=== PATIENT | female | born 1955 | race Caucasian/White ===

== ENCOUNTER 2019-06-18 20:23 | Observation (INO) ==
[2019-06-18] MEDS ORDERED: ONDANSETRON 4 MG/2 ML VIAL IV ONE ×2 (20:26→22:57)
[2019-06-18] MEDS ORDERED: HYDROmorphone 0.5 MG/0.5 ML SYRINGE IV PRN (20:37)
--- NOTE | 2019-06-18 20:59 | Emergency Department Note ---
Fall HPI - General Chief Complaint: Fall Stated Complaint: fell from ladder Time Seen by Provider: 06/18/19 20:29 Source: patient, EMS Mode of arrival: EMS - History of Present Illness HPI Narrative: Reason for visit: Patient fell from a ladder approximately 4 feet just prior to arriving to the emergency department. Reports right arm pain and right knee pain. Patient has obvious deformity of her right arm just above her wrist. Reports right knee pain and a history of a knee replacement in this right knee. Patient denies cervical tenderness denies hitting her head. Denies other injury. Denies recent fever cough or chills. Denies chest pain or palpations or shortness of breath. Denies pain in her right extremities. Has no palpable pain of her ribs or back. - Related Data Home Medications Medication Instructions Recorded Confirmed Levothyroxine [Synthroid] 50 mcg PO DAILY 06/18/19 06/18/19 Previous Rx's Medication Instructions Recorded HYDROcodone/APAP 5/325MG [[place]into 1 tab PO Q4HP PRN 5 Days #20 tablet 06/18/19 5-325Mg] Allergies Allergy/AdvReac Type Severity Reaction Status Date / Time No Known Drug Allergies Allergy Unverified 06/18/19 20:24 Review of Systems Constitutional: Denies: fever, chills ENT ED: Denies: throat pain, epistaxis Cardiovascular: Denies: chest pain, palpitations Respiratory: Denies: shortness of breath, cough, wheezes Gastrointestinal: Denies: abdominal pain, nausea, vomiting Musculoskeletal: Reports: as per HPI, joint swelling, joint pain, other (Also reports right hip tenderness upon palpation. Appears to be intact and no obvious external or internal rotation.). Denies: back pain Integumentary: Denies: rash, lesions Neurological: Reports: numbness (Reports some numbness in the fingers of her right hand.). Denies: headache, confusion Endocrine: Denies: fatigue Hematological/Lymphatic: Denies: easy bleeding, easy bruising, lymphadenopathy Fall PMH - Past Medical History Attestation: Yes: The following information was validated with the patient. - Social History smoking status: Never smoker Physical Exam Limitations: no limitations General appearance: alert Head: atraumatic, normocephalic, normal inspection Eye: Present: normal appearance, PERRL, EOMI. Absent: scleral icterus, conjunctival injection ENT: Present: normal oropharynx, mucous membranes moist Neck: Present: normal inspection, full ROM, trachea midline. Absent: tenderness, lymphadenopathy, thyromegaly Chest: Present: normal inspection, symmetric chest wall rise. Absent: tenderness Respiratory: Present: normal lung sounds bilaterally Cardiovascular: Present: regular rate, normal rhythm Abdominal: Absent: tenderness, guarding Extremities: Present: joint swelling (Right knee and right wrist.). Absent: full ROM, pedal edema, pretibial edema Forearm/Wrist: Present: tenderness, swelling, deformity. Absent: full ROM (Right wrist.) Hand: Absent: deformity Hip/Pelvis: Present: normal inspection, tenderness, pelvis stable. Absent: deformity, external rotation, internal rotation, shortening Upper leg: Present: normal inspection. Absent: tenderness Knee: Present: tenderness (Right knee.), swelling (Slight swelling some bruising. No obvious deformity.). Absent: full ROM Lower leg: Present: normal inspection. Absent: tenderness Ankle: Absent: tenderness Back: Present: normal inspection, full ROM. Absent: tenderness, L-S tenderness Neurological: Present: alert, oriented X3, CN II-XII intact Psychiatric: Present: normal affect Skin: Present: warm, dry, intact Course Course Narrative: Patient is alert and awake. Denies cervical tenderness denies head injury. Will not place patient in c-collar at this time. We will have a right wrist, right knee performed due to direct complaint and testament. We will also have a right hip x-ray due to patient's stated tenderness pain upon movement. Do not see an obvious break or deformity of the right knee or the hip. Obvious radial fracture with deformity on the x-ray. I have contacted Dr. Brandon who is the on-call orthopedist. He is agreed to look at this x-ray and call me back. Dr. Brandon called me back. He informed me that he is sending his PA to our emergency department to come and reduce the patient's right wrist. We will also send a referral to [facility] for the patient's right knee pain. Vital Signs Temperature 98 F 06/18/19 20:25 Pulse Rate 82 06/18/19 20:25 Respiratory Rate 16 06/18/19 20:25 Blood Pressure 111/69 06/18/19 20:25 Pulse Oximetry (%) 95 06/18/19 20:25 Temperature 98 F 05/10/20 20:25 Pulse Rate 88 06/18/19 21:16 Respiratory Rate 16 06/18/19 20:25 Blood Pressure 135/78 06/18/19 21:16 Pulse Oximetry (%) 97 06/18/19 21:16 Fall - Differential Diagnosis Likely: dislocation of shoulder region, fracture of wrist, concussion without loss of consciousness Disposition Pt seen by [facility]ER/PA only: No Clinical Impression: Fracture of wrist Qualifiers: Encounter type: initial encounter Fracture type: closed Laterality: right Qualified Code(s): S62.101A - Fracture of unspecified carpal bone, right wrist, initial encounter for closed fracture Fall Qualifiers: Encounter type: initial encounter Qualified Code(s): W19.XXXA - Unspecified fall, initial encounter Knee buckling Qualifiers: Laterality: right Qualified Code(s): M25.361 - Other instability, right knee Disposition: Home, Self-Care Condition: Fair Instructions: Wrist Fracture in Adults (ED) Additional Instructions: I have sent a prescription for hydrocodone to your pharmacy that you can picket labor union. I have also referred you to [facility] to follow-up with your knee. You could call their office with the supplied phone number and these instructions. This should be on the front page. Wear knee immobilizer until you follow-up with [facility]. Prescriptions: HYDROcodone/APAP 5/325MG [Minto 5-325Mg] 1 tab PO Q4HP PRN 5 Days #20 tablet PRN Reason: Pain Transmission Status: Received by [facility] # [id number] Referrals: Donna Chandler ARNP [Primary Care Provider] - Charly Brandon MD [Physician] -
[2019-06-18] MEDS ORDERED: LIDOCAINE 1% 20 ML VIAL SQ ONE (22:30)
[2019-06-18] MEDS ORDERED: PROMETHAZINE 25 MG/ML VIAL IM PRN (23:52)
--- NOTE | 2019-06-19 00:31 | History and Physical Report ---
DATE OF ADMISSION: 06/18/2019 CHIEF COMPLAINT: Right wrist pain with deformity. HISTORY OF PRESENT ILLNESS: The patient was up on a ladder earlier today when she fell off the ladder and onto her right wrist. She had immediate pain and deformity. She was then brought to the ED. X-rays were taken which showed a displaced distal radius fracture. Orthopedics was then consulted. The patient denied head injury or loss of consciousness. She does report knee pain. She has previously had a total knee arthroplasty on her right knee. PAST MEDICAL HISTORY: Hypothyroidism. PAST SURGICAL HISTORY: Right total knee arthroplasty. ALLERGIES: The patient reports no known drug allergies. HOME MEDICATIONS: She reports taking Synthroid 50 mcg p.o. daily. SOCIAL HISTORY: She does not smoke. PHYSICAL EXAMINATION: GENERAL: She is alert and oriented x3. She has appropriate mood and affect. EXTREMITIES: Right upper extremity showed gross deformity upon inspection at the wrist. She had moderate swelling, mild ecchymosis. She was able to actively move her thumb slightly; however, no active or passive range of motion noted in the other 4 digits. She did have good capillary refill; however, she did state sensation was not intact to her digits 2 through 4. She could feel her thumb, however. She had no pain to palpation at the elbow or shoulder. Left upper extremity showed full active and passive range of motion of the wrist and elbow. Good capillary refill. Palpable radial pulse. The patient did have tenderness on the medial and lateral sides of her knee. She had pain with valgus stress testing. Pain with active and passive range of motion of the knee. No pain with hip internal rotation passively. X-rays taken did show a displaced distal radius fracture consistent with Colles fracture. IMPRESSION: Displaced distal radius fracture of the right wrist. PLAN: After informed verbal consent, the patient chose to undergo a right wrist closed reduction. I did administer a hematoma block with 10 mL of lidocaine. After the patient had appropriate pain relief, reduction maneuver was then performed and verified with a mini fluoroscopy. The patient's wrist was then splinted with a sugar tong splint. Updated fluoroscopy images were then obtained confirming we maintained appropriate reduction. The patient will follow up with [facility] tomorrow for further treatment options including conservative versus operative management and also casting. She will also be sent home with a prescription for hydrocodone. She may take OTC NSAIDs and Tylenol as needed. She will also keep the arm elevated. She will call [facility] with any questions or concerns. JASMINE:khoi Job ID: [id number] Doc ID: [id number] Phong Alexander PA-C
--- NOTE | 2019-06-19 00:32 | History and Physical Report ---
DATE OF ADMISSION: 06/18/2019 ADDENDUM Knee x-rays, 3 view of the knee does show a nondisplaced periprosthetic tibial plateau fracture. PLAN: She was placed into a knee ranger locked in extension on the right knee. She is to remain nonweightbearing on the right lower extremity. Assuming the fracture does not displace, we will attempt nonsurgical measures at this time. JASMINE:khoi Job ID: [id number] Doc ID: [id number] Phong Alexander PA-C
[2019-06-19] MEDS: LEVOTHYROXINE 50 MCG TABLET PO SCH (07:15)
--- NOTE | 2019-06-19 07:37 | Internal Med History&Physical ---
Medical - H&P: HPI Patient information: Note initiated : 06/19/19 at 7:36 am Service Date, if different from initiated Date: [] Patient: Yue Montano 64 y/o F admitted on 06/19/19 for fell from ladder. Chief Complaint: [] Chief complaint: Fall off ladder History of present illness: Ms. Montano is a 64 year old F presents to the ER last evening after she was trying to insert a sign post and fell off a ladder approximately 4 feet. Patient was on the ground for at least 20 minutes when she called her friend and subsequently EMS arrived , she denies losing consciousness or sustaining head injuries. She landed on her right side injuring her right hand and leg. Initial work-up was consistent with right wrist fracture/right proximal tibia fracture. Orthopedics was consulted and patient underwent reduction and was advised discharge with nonweightbearing on right side along with outpatient follow-up at the clinic. However due to concerns of patient being able to take care of self in light of her living alone and unable to bear weight on right side hospital service was consulted for admission until a safe discharge plan can be arranged along with continued pain management. At the time evaluation patient is alert and oriented. She was able to answer most of the questions and provide history as above. She denied lightheadedness dizziness endorses to fall getting off balance. She denies prior similar episodes. Review of systems A 10 point review system was performed and is negative except for ones discussed above Medical - H&P: PMH Medical history: Hypothyroidism Degenerative joint disease Pertinent family history: Nonrelevant Social history: No smoking or alcoholism Medical - H&P: Meds Home Medications Medication Instructions Recorded Confirmed Type HYDROcodone/APAP 5/325MG [[place] 1 tab PO Q4HP PRN 5 Days #20 tab 06/18/19 Rx 5-325Mg] Levothyroxine [Synthroid] 50 mcg PO DAILY 06/18/19 06/19/19 History Allergies Allergy/AdvReac Type Severity Reaction Status Date / Time No Known Drug Allergies Allergy Unverified 06/18/19 20:24 Medical - H&P: Exam - Constitutional Vitals: Temp Pulse Resp BP Pulse Ox 98.0 F 81 14 112/72 96 06/19/19 04:00 06/19/19 04:00 06/19/19 04:00 06/19/19 04:00 06/19/19 04:00 General appearance: no acute distress Exam: Alert oriented head normocephalic Oral cavity dry No ear nose discharge Neck lymphadenopathy Nonlabored breathing Abdomen nondistended Left lower extremity in knee [place] locked in extension position No cyanosis clubbing or lymphedema Skin no suspicious lesion Psych alert cooperative Neuro nonfocal Medical - H&P: A/P (1) Fracture of wrist Current visit: Yes Status: Acute * Right wrist fracture status post close reduction by orthopedics. Orthopedic recommends follow-up outpatient clinic * Right tibia fracture on knee [place] locked in extension position/non weightbearing as per orthopedics. PT eval/directed treatments * Pain management on as needed opioids * Hypothyroidism continue home dose thyroxine * Prophylaxis heparin Plan * Observation admit * Pain management * PT OT/nutrition support * Case management coordinate safe discharge plan * Outpatient follow-up with orthopedics in 14 days Medical - H&P: Qual - VTE Deep Vein Thrombosis/Pulmonary Embolism Present on Admission: No
[2019-06-19] MEDS ORDERED: ONDANSETRON 4 MG/2 ML VIAL IV PRN (08:48)
--- NOTE | 2019-06-19 09:41 | XRay Report ---
CLINICAL INFORMATION: fall, knee pain COMPARISON: None. FINDINGS: Comminuted, nondisplaced hairline fracture of the proximal tibial epiphysis, metaphysis and metadiaphysis appreciated. Moderate diffuse osteoporosis noted. Total knee prostheses is anatomically aligned - there is mild resorption about the lateral aspect of the tibial anchoring component which could indicate loosening. Moderate size suprapatellar effusion noted. IMPRESSION: Comminuted, yet nondisplaced hairline fracture of the proximal tibia. Diffuse osteoporosis Moderate suprapatellar effusion Possible loosening of the tibial anchoring component Interpreted and Authenticated by: Bill Mendiola 06/19/19
--- NOTE | 2019-06-19 09:43 | XRay Report ---
CLINICAL INFORMATION: fall, deformity COMPARISON: None. FINDINGS: A severely comminuted amount predominantly converse, fracture through the distal radial metaphysis appreciated. The distal radial fragment is displaced entire shaft width dorsally and half shaft width ulnar direction. Distal fragment is also angulated approximately 45 degrees in the dorsal direction. There is also a severely comminuted transverse fracture of the ulnar styloid process base with fragment displacement entire shaft width dorsally and ulnarly dorsally and ulnarly. IMPRESSION: Severely comminuted markedly displaced displaced Colles' fracture distal radius. Severely comminuted and displaced fracture of the ulnar styloid process base Interpreted and Authenticated by: Bill Mendiola 06/19/19
--- NOTE | 2019-06-19 09:44 | XRay Report ---
CLINICAL INFORMATION: Trauma COMPARISON: None. FINDINGS: Sacroiliac and hip joints are normal in width and alignment without arthritic change. There is no fracture or osseous abnormality. Soft tissues are unremarkable. IMPRESSION: Normal exam. Interpreted and Authenticated by: Bill Mendiola 06/19/19
[2019-06-19] MEDS ORDERED: ACETAMINOPHEN 1,000 MG/100 ML BOTTLE IV ONE (10:25)
[2019-06-19] MEDS: traMADol 50 MG TABLET PO PRN ×2 (11:06→17:59)
[2019-06-19] MEDS: oxyCODONE HCL 5 MG TABLET PO PRN (19:34)
[2019-06-20] MEDS: oxyCODONE HCL 5 MG TABLET PO PRN ×3 (03:51→19:21)
[2019-06-20] MEDS: ACETAMINOPHEN 325 MG TABLET PO PRN ×3 (03:52→19:21)
[2019-06-20] MEDS: LEVOTHYROXINE 50 MCG TABLET PO SCH (07:12)
--- NOTE | 2019-06-20 09:22 | Internal Med Progress Note ---
Medical - PN: Subj Patient information: Note initiated : 06/20/19 at 9:11 am Service Date, if different from initiated Date: [] Patient: Yue Montano a 64 y/o F admitted on 06/19/19 for fell from ladder. Chief Complaint: [] Interval history: Ms. Montano is a 64 year old F presents to the ER last evening after she was trying to insert a sign post and fell off a ladder approximately 4 feet. Patient was on the ground for at least 20 minutes when she called her friend and subsequently EMS arrived , she denies losing consciousness or sustaining head injuries. She landed on her right side injuring her right hand and leg. Initial work-up was consistent with right wrist fracture/right proximal tibia fracture. Orthopedics was consulted and patient underwent reduction and was advised discharge with nonweightbearing on right side along with outpatient follow-up at the clinic. However due to concerns of patient being able to take care of self in light of her living alone and unable to bear weight on right side hospital service was consulted for admission until a safe discharge plan can be arranged along with continued pain management. At the time evaluation patient is alert and oriented. She was able to answer most of the questions and provide history as above. She denied lightheadedness dizziness endorses to fall getting off balance. She denies prior similar episodes. 06/19-patient clinically improving. No overnight fever chills. Pain well controlled on oxycodone codon/tramadol/Tylenol. Ongoing physical therapy but continues to feel dizzy and weak. Patient's family members will be joining her to provide help after discharge on Wednesday. Will likely discharge in 24 hours. - Constitutional Vitals: Vital Signs Temp Pulse Resp BP Pulse Ox 98.1 F 79 16 109/66 95 06/20/19 07:06 06/20/19 07:10 06/20/19 07:10 06/20/19 07:06 06/20/19 07:10 Period Temp Pulse Resp BP Sys/Zimmer Pulse Ox Last 24 Hr 97.8 F-99.0 F 78-85 16-20 93-120/59-77 94-97 Intake and Output 06/19/19 06/20/19 06/20/19 21:59 05:59 13:59 Intake Total 850 550 Balance 850 550 Weight 140 lb 12.8 oz Intake & Output: Intake & Output 06/19/19 06/20/19 06/20/19 21:59 05:59 13:59 Intake Total 850 550 Balance 850 550 Weight 140 lb 12.8 oz Intake: Oral 850 550 Other: Meal Dinner Percent of Meal Consumed 100% Feeding Ability Independent Urine Color Dark Yellow Urine Odor Normal # Voids 2 1 General appearance: no acute distress Exam: Right wrist in cast Head normocephalic No anxiety Nonlabored breathing Medical - PN: Obj Da - Labs CBC & Chem 7: 06/20/19 08:06 06/20/19 08:06 Meds: Medications Acetaminophen (Tylenol) 325 mg PO Q4-6HP PRN; Protocol PRN Reason: Per Pain Protocol/Fever > 101 Last Admin: 06/20/19 03:52 Dose: 325 mg Documented by: Levothyroxine Sodium (Synthroid) 50 mcg PO QAMAC MYNOR Last Admin: 06/20/19 07:12 Dose: 50 mcg Documented by: Morphine Sulfate (Morphine) 2 mg IV Q1HP PRN; Protocol PRN Reason: Chest Pain Last Admin: 06/19/19 07:15 Dose: 2 mg Documented by: Ondansetron HCl (Zofran) 4 mg IV Q4HP PRN PRN Reason: Nausea And Vomiting Last Admin: 06/20/19 07:34 Dose: 4 mg Documented by: Oxycodone HCl (Roxicodone) 2.5 mg PO Q4-6HP PRN; Protocol PRN Reason: Per Pain Protocol Last Admin: 06/20/19 03:51 Dose: 2.5 mg Documented by: Promethazine HCl (Phenergan) 12.5 mg IM Q6HP PRN PRN Reason: Nausea And Vomiting Tramadol HCl (Ultram) 50 mg PO Q4-6HP PRN PRN Reason: Pain Last Admin: 06/19/19 17:59 Dose: 50 mg Documented by: Medical - PN: A/P - Time Spent With Patient Total time spent is greater than 50% in coordination of care (as documented) at patient's floor/unit and/or counseling patient: 15 - 24 minutes (1) Fracture of wrist Status: Acute Assessment and plan: * Right wrist fracture status post close reduction by orthopedics. Orthopedic recommends follow-up outpatient clinic in 1 week * Right tibia fracture on knee [place] locked in extension positio n/nonweightbearing as per orthopedics. PT eval/directed treatments. We will follow-up with orthopedics * Pain management on as opioid/tramadol/Tylenol * Hypothyroidism continue home dose thyroxine * Prophylaxis heparin Plan * Continue multimodal pain management * PT OT/nutrition support * Likely discharge in 24 hours Current Visit: Yes Medical - PN: Qual - VTE Deep Vein Thrombosis/Pulmonary Embolism Present on Admission: No
[2019-06-20 09:27] LABS: Hematocrit 33.6 % (34.1-44.9); Hemoglobin 11.4 g/dL (11.2-15.7); Mean Cell Volume 95.7 fL (80.0-100.0); Mean Corpuscular HGB Conc 33.9 g/dL (31.0-36.0); Mean Platelet Volume 9.9 fL (7.4-10.4); Platelet Count 205 K/mcL (140-440); RBC 3.51 M/mcL (3.59-5.38); Red Cell Distribution Width 14.4 % (11.5-14.5); WBC 8.3 K/mcL (4.50-11.00)
[2019-06-20 09:44] LABS: ALT/SGPT 14 U/l (0-40); AST/SGOT 17 U/l (0-37); Albumin 4.1 gm/dL (3.2-5.2); Albumin/Globulin Ratio 1.6 (1.0-2.3); Alkaline Phosphatase 49 U/L (39-117); Bilirubin,Direct < 0.2 mg/dL (0.0-0.3); Bilirubin,Total 0.5 mg/dL (0.0-1.0); Blood Urea Nitrogen 10 mg/dl (8-23); Calcium 9.2 mg/dl (8.6-10.4); Carbon Dioxide 27 mmol/L (22-30); Chloride 99 mmol/L (96-108); Globulin 2.5 gm/dL (2.2-3.7); Glomerular Filtration Rate 92; Glucose 137 mg/dL (70-105); Lactate Dehydrogenase 190 U/L (94-250); Phosphorous 2.7 mg/dL (2.7-4.5); Triglycerides 95 mg/dl (<150)
[2019-06-20 09:59] LABS: Eosinophils % (Manual) 2 % (0-7); Hypochromasia 1+ (NONE SEEN); Lymphocytes % 12 % (15-49); Monocytes % (Manual) 11 % (1-12); Platelet Estimate NORMAL (NORMAL); RBC Morphology ABNORM (NORMAL); Segmented Neutrophils % 75 % (38-78)
[2019-06-20] MEDS ORDERED: SCOPOLAMINE 1 PATCH PATCH TOPICAL PRN (12:39)
[2019-06-20] MEDS ORDERED: IPRATROPIUM/ALBUTEROL 3 ML AMPUL.NEB NEB PRN ×2 (12:39→15:44)
[2019-06-20] MEDS ORDERED: PROPOFOL 200 MG/20 ML VIAL IV ONE (15:03)
[2019-06-20] MEDS ORDERED: DEXAMETHASONE 10 MG/ML VIAL IV ONE (15:03)
[2019-06-20] MEDS ORDERED: ONDANSETRON 4 MG/2 ML VIAL IV ONE (15:03)
[2019-06-20] MEDS ORDERED: fentaNYL 100 MCG/2 ML VIAL IV ONE (15:03)
[2019-06-20] MEDS ORDERED: LIDOCAINE HCL/PF 100 MG/5 ML SYRINGE IV ONE (15:03)
[2019-06-20] MEDS ORDERED: KETAMINE 100 MG/ML ML IV ONE (15:03)
[2019-06-20 15:14] LABS: Appearance,Urine CLEAR; Bilirubin,Urine NEG (NEG); Color,Urine STRAW; Culture Indicated,Urine NO; Glucose,Urine (UA) NEGATIVE (NEG); Ketones,Urine 5/TR mg/dL (NEG); Leukocyte Esterase,Urine NEG /uL (NEG); Nitrate,Urine NEG (NEG); Protein,Urine NEG (NEG); Specific Gravity,Urine 1.008 (1.000-1.035); Urine Blood NEG mg/dL (<0.03); Urobilinogen,Urine NEG (NEG)
[2019-06-20] MEDS ORDERED: ceFAZolin 2 GM in DEXTROSE 5% IN WATER 50 ML IV SCH (15:15)
[2019-06-20] MEDS ORDERED: LACTATED RINGERS 250 ML IV PRN (15:44)
[2019-06-20] MEDS ORDERED: NALOXONE HCL 0.4 MG/ML VIAL IV PRN (15:44)
[2019-06-20] MEDS ORDERED: PROMETHAZINE 25 MG/ML VIAL IV PRN (15:44)
[2019-06-20] MEDS ORDERED: ACETAMINOPHEN 1,000 MG/100 ML BOTTLE IV ONE (15:44)
[2019-06-20] MEDS ORDERED: diphenhydrAMINE 50 MG/ML VIAL IV PRN (15:44)
[2019-06-20] MEDS ORDERED: MEPERIDINE 25 MG/ML SYRINGE IV PRN (15:44)
[2019-06-20] MEDS ORDERED: PROMETHAZINE 25 MG/ML VIAL IM PRN (15:44)
[2019-06-20] MEDS ORDERED: ONDANSETRON 4 MG/2 ML VIAL IV PRN (15:44)
[2019-06-20] MEDS ORDERED: LACTATED RINGERS 1,000 ML IV SCH (15:45)
--- NOTE | 2019-06-20 16:08 | Brief Operative Note ---
Date of procedure: 06/20/19 Pre-op diagnosis: Comminuted intra-articular Right closed distal radius Colle's fracture Post-op diagnosis: same Procedure: Open treatment of comminuted intra-articular closed Colles distal radius fracture with internal fixation Grafts/Implants: Yes (Hand innovations) Anesthesia: GLMA Findings: osteoporosis Complications: none Surgeon: Charly Brandon Booking Clerk: Phong Alexander Estimated blood loss (cc): 10 Specimens Removed/Pathology: none sent Condition: stable Disposition: PACU
--- NOTE | 2019-06-20 16:11 | Discharge Summary ---
Ortho Discharge Plan - General - Patient Instructions Diet: Regular Diet Activity: non weight bearing (Right wrist and right LE, OK to use a trough walker) Dressing Care: May shower in 2 days (a) Patient Education: Wrist Fracture in Adults (ED) Additional Instructions: I have sent a prescription for hydrocodone to your pharmacy that you can pickup driver. This has acetaminophen (Tylenol) in it, so do not supplement with any extra Tylenol. Ice and elevate wrist and leg, 20 minutes at a time, multiple times per day, to help with pain, and swelling. You have been referred to see the [facility] [employer] [facility], Call their office in the morning. Do not put any weight on your right knee, wear the knee brace until further instruction from the Orthopedic. - Follow Up Plan Follow Up Appointments: Charly Brandon MD [Physician] - Donna Chandler ARNP [Primary Care Provider] - Disposition: Home, Self-Care Prognosis: Fair Rehab Potential: Fair - Orders For Discharge Prescriptions: HYDROcodone/APAP 5/325MG [[place] 5-325Mg] 1 tab PO Q4HP PRN 5 Days #20 tab PRN Reason: Pain Transmission Status: Received by [facility] # [id number] Additional Discharge Orders: Physical Therapy at Discharge - General Location: None Selected Walker Location: None Selected
[2019-06-20] MEDS ORDERED: BUPIVACAINE W/EPI 0.5% 50 ML VIAL IJ ONE (16:19)
[2019-06-20] MEDS: fentaNYL 100 MCG/2 ML VIAL IV PRN ×4 (16:36→16:45)
[2019-06-20] MEDS: traMADol 50 MG TABLET PO PRN (17:16)
[2019-06-21] MEDS: ACETAMINOPHEN 325 MG TABLET PO PRN ×3 (05:18→14:53)
[2019-06-21] MEDS: oxyCODONE HCL 5 MG TABLET PO PRN ×3 (05:19→14:54)
[2019-06-21] MEDS: LEVOTHYROXINE 50 MCG TABLET PO SCH (07:34)
--- NOTE | 2019-06-21 08:25 | Operative Note ---
DATE OF OPERATION: 06/20/2019 PREOPERATIVE DIAGNOSIS: Comminuted intraarticular right distal radius fracture, Colles type. POSTOPERATIVE DIAGNOSIS: Comminuted intraarticular right distal radius fracture, Colles type. PROCEDURE PERFORMED: Open treatment and internal fixation of the right comminuted intraarticular closed distal radius fracture with three or more fragments using [employer] volar distal radius plate. SURGEON: Charly Brandon M.D. FLOATING DERRICK OPERATOR: Luciano Alexander PA-C. The PA's assistance was required for the safe and efficient completion of the entire case. This provider's expertise and technical skill were required throughout the case. The PA assisted with preoperative coordination, intraoperative retraction, wound closure, dressing and splint application, as well as postoperative documentation and care coordination. ANESTHESIA: General. DRAINS: None. SPECIMENS: None. COMPLICATIONS: None. BLOOD LOSS: 10 mL. POSTOPERATIVE CONDITION: Stable. INDICATIONS FOR SURGERY: This is a 64-year-old female who two days ago fell off of a ladder, injuring her right wrist and knee. X-rays showed a severely comminuted and displaced distal radius fracture. She also had a nondisplaced fracture of her proximal tibia with a total knee prosthesis just above it. She did have a closed reduction performed on the wrist with good reduction. However, due to her tibia fracture she wanted to proceed with fixation of the wrist to allow easier use of a trough walker. FINDINGS AT SURGERY: Significant osteoporosis. Post-fixation showed satisfactory mormon of radial inclination and height with mormon of volar tilt. Hardware was in good position. PROCEDURE IN DETAIL: The patient had been preoperatively. Informed consent had been obtained after discussion of risks and benefits of surgery. Risks including, but not limited to, bleeding; infection; injury to nerves, blood vessels, other surrounding structures; anesthetic risks; nonunion or malunion of the fracture; failure of hardware fixation; stiffness; pain; possibility of needing further surgery. She understood and wished to proceed. Correct operative site was marked in preoperative holding and patient was taken to the operating room. General anesthesia was induced. Right upper extremity was carefully prepped and draped in normal sterile fashion. Time out was performed verifying patient name, operative site, and plan. Esmarch was used to exsanguinate the extremity and tourniquet was inflated to 250 mmHg. Volar incision was made over the flexor carpi radialis tendon with a scalpel through skin and subcutaneous tissue. Hemostasis was obtained with Bovie cautery and then we continued careful sharp dissection through the peritenon. The tendon was then retracted and then the floor of the tendon sheath was incised. We carefully bluntly dissected medial to the flexor pollicis longus muscle belly and down onto the pronator quadratus. This was incised along the radial border of the distal radius and an AO elevator was used to elevate subperiosteally. The fracture was then exposed. A reduction maneuver was performed and then a 0.062 K-wire was passed from the radial styloid tip across the fracture and through the far cortex to get preliminary fixation into the 4-hole standard DVR right plate. This was carefully positioned and pinned into place preliminarily. Fluoro was brought in to verify plate position. We then drilled and placed a 3.5 screw in the oblong hole in the shaft and then did minor adjustments of the plate position until I liked it on fluoro and then placed a 10 in the distal end of the plate. I drilled for the 2.0 pegs and then first placed a threaded nonlocking screw to help reduce the distal fragment down to the plate and then started drilling and placing smooth locking pegs. Once these were all filled, a total of seven, I then removed the nonlocking threaded screw and replaced it with a smooth locking peg. I then went to the proximal shaft and drilled and placed two more screws, one proximal of the oblong hole and one distal for a total of three screws proximal. Once these were placed, I chose to leave the fourth hole or most proximal hole empty to avoid a stress riser at the tip of the plate. Final fluoro images were taken, AP and radially-inclined lateral which showed anatomic alignment and hardware in good position. These images were saved. I then irrigated copiously with Irrisept. After a minute I irrigated with saline. We then attempted to close the pronator quadratus over the plate with some 0 Vicryl [id number]. This was rather friable tissue. We then closed with 2-0 Monocryl for subcutaneous and a 4-0 nylon running mattress stitch for skin. Local anesthetic was injected. Sterile dressing was applied. Tourniquet was released and a wrist brace was applied. The patient was then awakened, extubated, and transferred to recovery in stable condition. BJB:rosie Job ID: [id number] Doc ID: [id number] Charly Brandon MD
--- NOTE | 2019-06-21 09:24 | Discharge Summary ---
Medical - DS: Prov Patient information: Note initiated : 06/21/19 at 9:22 am Service Date, if different from initiated Date: [] Patient: Yue Montano 64 y/o F admitted on 06/19/19 for fell from ladder. Chief Complaint: [] Date of admission: 06/19/19 00:36 Discharge date: 06/21/19 Primary care physician: Donna Chandler Consults: 06/18/19 Consult to Physician [CONS] Stat Comment: Consulting Provider: Myles Dutton Reason For Exam: Physician to Consult Consult to Physician [CONS] Stat Comment: Consulting Provider: Phong Alexander Reason For Exam: Physician to Consult Medical - DS: Meds - Discharge Medications Prescriptions: oxyCODONE HCL [Roxicodone] 2.5 mg PO Q4-6HP PRN #10 tab PRN Reason: Per Pain Protocol Prescription Printed traMADol [Ultram] 50 mg PO Q4-6HP PRN #14 tab PRN Reason: Pain Prescription Printed Active and Home Medications: Home Medications Levothyroxine [Synthroid] 50 mcg PO DAILY 06/18/19 [History Confirmed 06/19/19 Last Taken 06/18/19 07:00] oxyCODONE HCL [Roxicodone] 2.5 mg PO Q4-6HP PRN #10 tab 06/21/19 [Rx Last Taken Unknown] traMADol [Ultram] 50 mg PO Q4-6HP PRN #14 tab 06/21/19 [Rx Last Taken Unknown] Medical - DS: Hosp Hospital Course: Discharge diagnosis * Right wrist fracture status post open reduction by orthopedics. Follow-up [facility] orthopedics as advised. * Right tibia fracture on knee [place] locked in extension position/nonweightbearing as per orthopedics. PT eval/directed treatments. * Pain management on as opioid/tramadol/Tylenol * Hypothyroidism continue home dose thyroxine Brief hospital course Ms. Montano is a 64 year old F presents to the ER last evening after she was trying to insert a sign post and fell off a ladder approximately 4 feet. Patient was on the ground for at least 20 minutes when she called her friend and subsequently EMS arrived , she denies losing consciousness or sustaining head injuries. She landed on her right side injuring her right hand and leg. Initial work-up was consistent with right wrist fracture/right proximal tibia fracture. Orthopedics was consulted and patient underwent reduction and was advised discharge with nonweightbearing on right side along with outpatient follow-up at the clinic. However due to concerns of patient being able to take care of self in light of her living alone and unable to bear weight on right side hospital service was consulted for admission until a safe discharge plan can be arranged along with continued pain management. At the time evaluation patient is alert and oriented. She was able to answer most of the questions and provide history as above. She denied lightheadedness dizziness endorses to fall getting off balance. She denies prior similar episodes. 06/19-patient clinically improving. No overnight fever chills. Pain well controlled on oxycodone codon/tramadol/Tylenol. Ongoing physical therapy but continues to feel dizzy and weak. Patient's family members will be joining her to provide help after discharge on Wednesday. Will likely discharge in 24 hours. 06/20-postop day 1. Open treatment of comminuted intra-articular closed Colles' distal radius fracture reviewed internal fixation. Discharging with recommendations as per orthopedics. Continue home health. Follow-up with orthopedics as advised. Discharge diagnosis: . - Time Spent with Patient Total time spent providing and/or coordinating discharge services: Greater than 30 minutes Medical - DS: Exam - Constitutional Vitals: Vital Signs Temp Pulse Resp BP Pulse Ox 06/21/19 08:00 98.2 F 79 18 93/57 94 06/21/19 02:33 97.7 F 73 16 112/66 93 06/20/19 23:07 98.0 F 76 16 95/60 92 06/20/19 20:01 98.4 F 75 18 117/71 95 06/20/19 19:01 85 121/77 94 06/20/19 18:31 72 131/75 93 06/20/19 18:00 99.0 F 74 18 127/76 93 06/20/19 17:45 77 18 127/75 91 06/20/19 17:30 79 18 131/77 92 06/20/19 17:15 86 18 133/76 92 06/20/19 17:00 98.0 F 88 18 131/74 100 06/20/19 16:50 98.6 F 85 16 126/58 93 06/20/19 16:45 89 14 132/68 91 06/20/19 16:40 98.9 F 91 H 15 135/60 95 06/20/19 16:37 97 H 20 116/70 97 06/20/19 16:30 91 H 18 124/68 100 06/20/19 16:25 87 17 113/69 100 06/20/19 16:23 98.7 F 77 10 L 109/62 99 06/20/19 12:00 97.8 F 85 18 104/66 98 Intake and Output 06/20/19 06/21/19 06/21/19 21:59 05:59 13:59 Intake Total 1900 575 Output Total 1350 700 Balance 550 -125 Intake: IV 100 Oral 575 IV - Manual Only 1800 Output: Void Amount 1350 700 Other: Urine Appearance Clear Clear Urine Color Bright Yellow Bright Yellow Urine Odor Normal Weight 144 lb Medical - DS: Data Labs on day of discharge: Labs from last 24 hours 06/20/19 06/20/19 06/20/19 14:20 08:06 08:06 WBC 8.3 RBC 3.51 L Hgb 11.4 Hct 33.6 L MCV 95.7 MCH 32.5 MCHC 33.9 RDW 14.4 Plt Count 205 MPV 9.9 Total Counted 100 Seg Neutrophils % 75 Lymphocytes % 12 L Monocytes % (Manual) 11 Eosinophils % (Manual) 2 Platelet Estimate Normal RBC Morphology Abnorm A Hypochromasia 1+ A Sodium 135 Potassium 3.7 Chloride 99 Carbon Dioxide 27 Anion Gap 9.0 BUN 10 Creatinine 0.7 GFR Calculation 92 Glucose 137 H Uric Acid 4.0 Calcium 9.2 Phosphorus 2.7 Magnesium 2.0 Total Bilirubin 0.5 Direct Bilirubin < 0.2 GGT 8 AST 17 ALT 14 Alkaline Phosphatase 49 Lactate Dehydrogenase 190 Total Protein 6.6 Albumin 4.1 Globulin 2.5 Albumin/Globulin Ratio 1.6 Triglycerides 95 Urine Color Straw Urine Appearance Clear Urine pH 6.0 Ur Specific [place] 1.008 Urine Protein Neg Urine Glucose (UA) Negative Urine Ketones 5/tr A Urine Occult Blood Neg Urine Nitrate Neg Urine Bilirubin Neg Urine Urobilinogen Neg Ur Leukocyte Esterase Neg Ur Culture Indicated? No Medical - DS: A/P - Patient/Caregiver Discharge Instructions Activity: as per physical therapy, increase activity as tolerated Diet: Regular Diet Additional Instructions: I have sent a prescription for hydrocodone to your pharmacy that you can lease picker. This has acetaminophen (Tylenol) in it, so do not supplement with any extra Tylenol. Ice and elevate wrist and leg, 20 minutes at a time, multiple times per day, to help with pain, and swelling. Do not put any weight on your right knee, wear the knee brace until further instruction from the Orthopedic. Discharge Instructions: No weight bearing with right arm/hand and right leg. Take your prescription, photo ID, insurance cards, and current medication list with you to your first physical therapy appointment. Wear comfortable clothing for your physical therapy. Take your prescription to lease picker any medication or equipment (such as walker, crutches, toilet riser or C.P.M.) You have the silver dressing, leave in place for 7-14 days then remove. If dressing becomes soiled (turns black), remove and use gauze 4x4 dressing and antimicrobial silver ointment ([id number]) and change daily. You may shower with dressing on, pat dry after shower. You may start showering on post op day #2. To avoid constipation while taking any narcotic pain medication, take an over the counter stool softener/laxative. If you have any questions or concerns call your orthopedic surgeon before going to the emergency room. [facility] has a regional dedicated truck driver physician 24 hours per day/7 days per week and can be reached at [phone]. Call for fevers above 100.5 or pain not controlled by medication. Your prescriptions are with your discharge information. Some medications were electronically transmitted to your pharmacy of choice. Prescriptions: traMADol [Ultram] 50 mg PO Q4-6HP PRN #14 tab PRN Reason: Pain Prescription Printed Other Amb Orders: Physical Therapy at Discharge - General Location: None Selected Walker Location: None Selected - Problem Maintenance (1) Fracture of wrist Status: Acute Qualifiers: Encounter type: initial encounter Fracture type: closed Laterality: right Qualified Code(s): S62.101A - Fracture of unspecified carpal bone, right wrist, initial encounter for closed fracture - Follow up Plan Follow up with: Charly Brandon MD [Physician] - 07/06/19 10:20 am Donna Chandler ARNP [Primary Care Provider] - Disposition: Home Health Service Care Plan Goals: This discharge packet is provided to you to help keep you informed about your care. We want to ensure you get everything you need when you go home. You will also be receiving a call from us in a few days to follow up with you and see how you are doing since your discharge. This gives us a chance to listen to any concerns you maybe experiencing since you were discharged or any additional needs you may have, as well as providing us feedback on your care experience. We strive to always provide excellent care and thank you for your feedback and for choosing [facility]. Prognosis: Fair Rehab Potential: Fair I certify that the patient requires SNF services: No Overall status at discharge: patient is progressing back to baseline Medical - DS: Qual - VTE Deep Vein Thrombosis/Pulmonary Embolism Present on Admission: No
== END 2019-06-21 15:22 | disposition home health service (06) ==
LOC: EDACCT# → ED 20:23 → MEDSUR 20:23
PROVIDERS: ADMIT Internal Medicine; ATTEND Internal Medicine